=== PATIENT | male | born 1955 | race Caucasian/White ===

== ENCOUNTER 2020-10-04 07:11 | Emergency (ER) | payer OTHER, SELFPAY ==
[2020-10-04 07:12] VITALS: BP 168/113; PULSE 88; RESP 20; TEMP 36.6; O2SAT 97; BMI 29.5
--- NOTE | 2020-10-04 07:23 | ED.VIS.GEN ---
History of Present Illness Chief Complaint: Flank Pain Informant: Patient Narrative: Patient is a 65-year-old male with a past medical history of hypertension, kidney stones who presents to the emergency department for right-sided back pain. He states that it is very severe upon waking this morning. He had a similar episode 5 weeks ago but went away on its own. He tried drinking a bunch of water to flush out his system this morning but was still having significant pain and felt very shaky so he came into the emergency department. Upon arrival he states that his pain was rapidly improving. He feels like he should not have come in at this point now. He denies any abdominal pain associated with this. He denies any chest pain or shortness of breath. No nausea/vomiting. He denies any urinary symptoms. No change in bowel habits. No fevers or chills. No previous abdominal surgeries. Past Medical History - Allergies and Home Meds Allergies/Adverse Reactions: Allergies No Known Allergies Allergy (Verified 10/04/20 07:14) Primary Care Physician: ANAY MCCONNELL [Other] - 2 Days Prior records reviewed: Yes Review of Systems All systems negative except as indicated General: Denies: Chills, Fever, Sweats Eyes: Denies: Visual changes - bilaterally, Diplopia ENT: Denies: Rhinorrhea, Sore throat Cardiovascular: Denies: Chest pain, Palpitations Respiratory: Denies: Dyspnea, Cough, Dyspnea on exertion Gastrointestinal: Denies: Abdominal pain, Nausea, Vomiting, Diarrhea, Melena, Hematochezia Genitourinary: Denies: Dysuria, Hematuria, Frequency Musculoskeletal: Reports: Back pain. Denies: Extremity Pain Skin: Denies: Rash, Wounds Neurological: Denies: Headache, Weakness, Numbness Physical Exam Vital Signs/Narrative: Vital Signs Temp Pulse Resp BP Pulse Ox 10/04/20 07:12 97.8 F 88 20 H 168/113 H 97 Inital Vital Signs reviewed: Yes General: Well nourished, Well developed, No Acute Distress Head: Normocephalic, Atraumatic Eyes: Perrl, EOMI ENT: Moist mucous membranes, No rhinorrhea Neck: Supple, Nontender Cardiovascular: Regular rate, Regular rhythm, No murmurs Respiratory: No distress, CTA bilaterally Abdomen: Soft, Nondistended Back: Normal Inspection Extremities: No edema, - - Up walking around the room. Skin: Normal color, No rash Neurological: Alert, Oriented x3, Normal Strength, Normal Sensation Psychological: Normal affect, Normal Mood Diagnostic/Tx/Re-eval - Medical Decision Making Patient presents to the ED for right-sided flank/low back pain. He is concerned for kidney stone is has had this before in the past. Whenever he arrived he states that his pain is rapidly improving and he is now asymptomatic. Patient does not want to get a CT scan at this time. Will check a urinalysis to evaluate for red blood cells or infection. Patient very adamant on leaving the emergency department as his symptoms completely resolved. He is requesting to be discharged. Patient's urinalysis came back at the same time which showed some occult blood but no red blood cells. No obvious source of infection. Since his pain completely resolved this likely could be a kidney stone but cannot say for sure. I did give him a strainer. He is to follow-up with his PCP. Warning signs and symptoms which to return to the ED including any repeat symptoms are reviewed with him. He understands and is agreeable this plan. All questions were answered. ED Disposition - Plan for ED Patient: Disposition: Home or Assisted Living Diagnosis: Back pain Instructions: ED Flank Pain, Uncertain Cause Referrals: ANAY MCCONNELL [Other] - 2 Days
[2020-10-04 07:52] LABS: Bacteria 0 SEEN /hpf (None Seen); Squamous Epithelial Cells - UA 0 SEEN /hpf (0-5); White Blood Cells 0 SEEN /hpf (0-5)
[2020-10-04 07:53] LABS: Color, Urine Yellow (Yellow); Glucose, Dipstick Normal (Normal); Ketone-Dipstick Negative (Negative); Leukocyte Esterase-Dipstick Negative /ul (Negative); Nitrite-Dipstick Negative (Negative); Occult Blood-Urine 50 /ul (Negative); Protein-Dipstick 15 mg/dl (Negative); Urine Bilirubin Dipstick Negative (Negative); Urine Clarity Sl. Cloudy (Clear); Urine Urobilinogen Normal (Normal)
[2020-10-04 07:59] LABS: Mucous, Urine 1+ /hpf (<or=2+); Red Blood Cells-Urine 0-5 SEEN /hpf (0-5)
== END 2020-10-04 08:06 | disposition home or self-care (01) ==
PROVIDERS: Emergency Provider Emergency Medicine
DX: M54.9 Dorsalgia, unspecified (principal); I10 Essential (primary) hypertension; Z87.442 Personal history of urinary calculi
CPT/HCPCS: 81001; 99282

== ENCOUNTER 2020-12-03 17:10 | Observation (INO) | payer OTHER, SELFPAY ==
[2020-12-03 17:11] VITALS: BP 164/114; PULSE 87; RESP 20; TEMP 36.1; O2SAT 96; BMI 27.8
--- NOTE | 2020-12-03 17:21 | CT_ITS ---
STUDY: CT ABDOMEN AND PELVIS WITHOUT CONTRAST REASON FOR EXAM: Male, 65 years old. RT FLANK PAIN X 6 HRS, HX-KS, SURG-APPY RADIATION DOSAGE (If Supplied By Facility): CTDIvol = ( 11.17 ) mGy, DLP = ( 574.89 ) mGycm TECHNIQUE: Transaxial images were obtained from the dome of the diaphragm to the symphysis pubis without oral contrast, and without intravenous contrast. Sagittal and coronal images were reconstructed. Individualized dose optimization techniques were used for this CT. COMPARISON: None. FINDINGS: The visualized lung bases are unremarkable. The visualized portions of the heart are within normal limits. Normal liver with several small well-defined low-attenuation structures measuring as much as 2.1 cm suggestive of cysts. Normal gallbladder and extrahepatic biliary system. Normal spleen. Normal pancreas. Normal bilateral adrenal glands. Abnormal right kidney showing perinephric stranding and mild/moderate hydronephrosis and hydroureter down to a 6 mm stone at the orifice of the right UVJ. See coronal image 72, and axial image 154. Left kidney has small simple cysts and is otherwise normal. Evaluation of the GI tract is limited by absence of oral contrast. Cannot exclude stomach wall thickening. No dilated loops of bowel or evidence for obstruction. Cannot exclude segmental thickening of the yanez of the small or large bowel. Cannot exclude enteritis or colitis. Moderate diffuse fecal retention. Diverticulosis without definite diverticulitis. Normal abdominal aorta. Normal inferior vena cava. Normal retroperitoneum. Normal urinary bladder. Normal abdominal wall. There are diffuse degenerative changes of the visualized lumbar spine. CT/Abdomen/Pelvis without Cont IMPRESSION: Obstruction of the right kidney collecting system and ureter from a 6 mm right UVJ stone. Electronically Signed: Roberto Martinez MD at 18:09 EST , Service support ,
--- NOTE | 2020-12-03 17:25 | ED.VIS.GEN ---
History of Present Illness Chief Complaint: Flank Pain Informant: Patient Onset: Hours Context: Gradual Onset Timing: Waxes and wanes Current Severity: Moderate Maximum Severity: Moderate Narrative: Patient presents with 6-hour history of right flank pain. He states he had a similar episode approximately 6 weeks ago. He came to the ER at that time but upon arrival his pain improved. He did not want CT imaging at that time it was presumed that he had had a kidney stone. Patient states he had had no problems until today when pain recurred. He points to the right lower back and down to the right groin. He states he has gone to the bathroom a few times but only gotten trickles of urine out. He has had some mild nausea but no vomiting. No fever or chills. - Past Medical History (1) Hypertension Status: Chronic Past Medical History - Allergies and Home Meds Allergies/Adverse Reactions: Allergies No Known Allergies Allergy (Verified 12/03/20 17:10) Primary Care Physician: [facility] Doctor,Out of [NON-STAFF] - Prior records reviewed: Yes Smoking Status: Never smoker Review of Systems General: Denies: Chills, Fever Eyes: Denies: Visual changes - bilaterally ENT: Denies: Bilateral ear pain Cardiovascular: Denies: Chest pain Respiratory: Denies: Dyspnea, Cough Gastrointestinal: Reports: Abdominal pain, Nausea. Denies: Vomiting, Diarrhea Genitourinary: Denies: Dysuria, Hematuria Musculoskeletal: Denies: Swelling, Extremity Pain Skin: Denies: Rash Neurological: Denies: Headache Hematologic: Denies: Easy bruising, Easy bleeding Allergy: Denies: Uticaria Physical Exam Vital Signs/Narrative: Vital Signs Temp Pulse Resp BP Pulse Ox 12/03/20 17:11 96.9 F L 87 20 H 164/114 H 96 Inital Vital Signs reviewed: Yes General: Well nourished, Well developed Head: Normocephalic ENT: Moist mucous membranes Neck: Supple Cardiovascular: Regular rate, Regular rhythm Respiratory: No distress, CTA bilaterally Abdomen: Soft, Nontender Back: Negative for: CVA tenderness Extremities: Nontender Skin: Normal color, No rash Neurological: Alert, Oriented x3, Normal Strength, Normal Sensation Psychological: Normal affect Diagnostic/Tx/Re-eval Impressions Abdomen/Pelvis CT 12/03/20 17:21 IMPRESSION: Obstruction of the right kidney collecting system and ureter from a 6 mm right UVJ stone. Electronically Signed: Roberto Martinez MD at 18:09 EST , Service support , 12/03/20 17:21 Abdomen/Pelvis without Cont [CT] Stat Laboratory Results 12/03/20 12/03/20 12/03/20 17:20 17:20 18:16 WBC 8.2 RBC 4.64 Hgb 14.4 Hct 42.8 MCV 92.2 MCH 31.0 MCHC 33.6 RDW Std Deviation 41.1 RDW Coeff of Michael 12.1 Plt Count 265 MPV 9.3 Immature Gran % (Auto) 0.400 Neut % (Auto) 57.4 Lymph % (Auto) 30.1 [place] % (Auto) 10.4 H Eos % (Auto) 1.2 Baso % (Auto) 0.5 Absolute Neuts (auto) 4.7 Absolute Lymphs (auto) 2.48 Nucleated RBC % 0 Sodium 138 Potassium 4.5 Chloride 104 Carbon Dioxide 30.0 Anion Gap 4 L BUN 18 Creatinine 1.34 H Estim Creat Clear Calc 55.69 Est GFR (MDRD) Af Amer 69 Est GFR (MDRD) Non-Af 57 L BUN/Creatinine Ratio 13.4 Glucose 103 Calcium 8.9 Urine Color Yellow Urine Clarity Clear Urine pH 6.0 Ur Specific [place] 1.020 Urine Protein Negative Urine Glucose (UA) Normal Urine Ketones Negative Urine Occult Blood Negative Urine Nitrite Negative Urine Bilirubin Negative Urine Urobilinogen Normal Ur Leukocyte Esterase Negative Urine RBC 0-5 SEEN Urine WBC 0-5 SEEN Ur Squamous Epith Cells 0 SEEN Urine Bacteria 0 SEEN Urine Mucus 0 SEEN - Medical Decision Making Patient was initially given morphine and Zofran along with IV fluids. He states he had taken ibuprofen earlier today. On repeat evaluation he still had continued pain and was given a small dose of Toradol along with a dose of Dilaudid. He is also given p.o. Flomax. CT scan does reveal a 6 mm stone at the UVJ with right-sided hydro-. On repeat evaluation patient is still quite uncomfortable and cannot lie with any pressure on his back. With difficulty controlling his pain I do feel he should be observed overnight for pain control and then further intervention if needed. I will speak with urology. ED Disposition - Plan for ED Patient: Disposition: Acute Care Hospital [facility] Diagnosis: Kidney stone Referrals: [facility] Doctor,Out of [NON-STAFF] -
[2020-12-03] MEDS: 0.9% Normal Saline 1,000 ML 250 ML IV (17:29)
[2020-12-03] MEDS: Morphine 4 MG/ML Syringe IV (17:30)
[2020-12-03] MEDS: Ondansetron 4 MG/2 ML Vial IV (17:30)
[2020-12-03 17:32] LABS: Absolute Lymphocyte Count 2.48 X10^3/uL (0.83-4.51); Absolute Neutrophil Count 4.7 X10^3/uL (2.0-7.7); Basophil# 0.04 X10^3/uL; Basophil% 0.5 % (0-1); Eosinophils% 1.2 % (0-5); Hematocrit 42.8 % (40-54); Hemoglobin 14.4 g/dL (13.0-16.5); Lymphocyte # 2.48 X10^3/ul (4.0); Lymphocyte % 30.1 % (19-41); Mean Corp Hgb Conc 33.6 g/dL (32-36); Mean Corpuscular Volume 92.2 fL (80-94); Mean Platelet Vol. 9.3 fl (6.2-12.0); Monocyte# 0.86 X10^3/uL; Monocyte% 10.4 % (0-10); NRBC Flagged by Analyzer 0 % (0-5); Neutrophil # 4.73 X10^3/uL (2.7-7.7); Neutrophil % 57.4 % (47-70); Platelet Count 265 K/mm3 (150-450); RBC Distribution Width CV 12.1 % (11.6-14.6); RBC Distribution Width SD 41.1 fl (35.1-43.9); Red Blood Count 4.64 M/mm3 (4.6-6.2); White Blood Count 8.2 K/mm3 (4.4-11.0)
[2020-12-03 17:46] LABS: Anion Gap 4 (5-15); BUN 18 mg/dL (7-18); BUN/Creat Ratio 13.4 RATIO (10-20); Calcium,Total 8.9 mg/dL (8.5-10.1); Chloride 104 mmol/L (98-107); Creatinine, Serum 1.34 mg/dL (0.70-1.30); EST Glomerular Filtration Rate 57 mL/min (>60); Est Glom Filt Rate - Afr Amer 69 mL/min (>60); Estimated Creatinine Clearance 55.69 ml/min; Glucose 103 mg/dL (74-106); Potassium 4.5 mmol/L (3.5-5.1); Sodium Level 138 mmol/L (136-145)
[2020-12-03] MEDS: HYDROmorphone 0.5 MG/0.5 ML SYRINGE IV ×3 (18:20→22:21)
[2020-12-03] MEDS: Ketorolac 15 MG/ML Vial IV (18:21)
[2020-12-03 18:23] LABS: Bacteria 0 SEEN /hpf (None Seen); Mucous, Urine 0 SEEN /hpf (<or=2+); Squamous Epithelial Cells - UA 0 SEEN /hpf (0-5)
[2020-12-03 18:24] LABS: Color, Urine Yellow (Yellow); Glucose, Dipstick Normal (Normal); Ketone-Dipstick Negative (Negative); Leukocyte Esterase-Dipstick Negative /ul (Negative); Nitrite-Dipstick Negative (Negative); Occult Blood-Urine Negative /ul (Negative); Protein-Dipstick Negative (Negative); Urine Bilirubin Dipstick Negative (Negative); Urine Clarity Clear (Clear); Urine Urobilinogen Normal (Normal)
[2020-12-03 18:32] LABS: Red Blood Cells-Urine 0-5 SEEN /hpf (0-5); White Blood Cells 0-5 SEEN /hpf (0-5)
[2020-12-03] MEDS: Tamsulosin HCl 0.4 MG Capsule PO (18:38)
[2020-12-03 18:41] VITALS: BP 139/93; PULSE 86; RESP 16
[2020-12-03 20:11] VITALS: BP 142/97; PULSE 84; RESP 16; TEMP 36.4
--- NOTE | 2020-12-03 21:18 | PCM.HP.STD ---
Problem List (1) Kidney stone Status: Acute History of Present Illness Date of Admission: 12/03/20 Chief Complaint: right UVJ stone The patient is a 65 year old Male with a 6mm UVJ stone very likely will pass, admit for pain control Past Medical History Past Medical History (Chronic Problems): Chronic Problems Hypertension (Chronic) Allergies No Known Allergies Allergy (Verified 12/03/20 17:10) Home Medications: Ambulatory Orders Medication Instructions Recorded Lisinopril [Zestril] 10 mg PO DAILY 12/03/20 Surgical History: no surgical history Smoking Status: Never smoker Review of Systems Constitutional: Denies: Chills, Fever, Weight Change HEENT: Denies: Head Aches, Sinus Congestion, Sinus Drainage Cardiovascular: Denies: Chest Pain, Palpitations Respiratory: Denies: Cough, Shortness of breath at rest, Sputum production Gastrointestinal: Denies: Abdominal Pain, Nausea, Vomiting Genitourinary: Denies: Dysuria Musculoskeletal: Denies: Joint Pain, Joint Tenderness Skin: Denies: Rash, Wounds Neurological: Denies: Numbness, Tingling, Focal weakness Psychiatric: Denies: Anxiety, Depression, Homicidal Ideations, Suicidal Ideations Hematologic/ Lymphatic: Denies: Easy Bruising, Easy Bleeding VTE Information - Inpt Only VTE Present on Admission: No Patient Problems: Active and Suspected Problems Kidney stone (Acute) - Physical Exam Vitals/I&O's: Vital Signs Temp Pulse Resp BP Pulse Ox 97.5 F L 84 16 142/97 H 96 12/03/20 20:11 12/03/20 20:11 12/03/20 20:11 12/03/20 20:11 12/03/20 17:11 Oxygen Delivery Method Room Air Weight: 85.729 kg Body Mass Index (BMI) 27.8 General: Alert, Oriented x3, Cooperative HEENT: Atraumatic, PERRLA, EOMI, Normocephalic Neck: Supple, No JVD, Negative Carotid Bruits Lungs: Clear to auscultation, Normal air movement Cardiovascular: Regular rate, No murmurs Abdomen: Bowel Sounds Present, Soft, Non Tender Extremities: No edema, Capillary Refill Less than 3 Seconds Skin: No rashes, No breakdown Musculoskeletal: No Tenderness to Palpation of Joints or Extremities Neurological: Cranial nerves II-XII grossly intact Psych/Mental Status: Normal Affect, Appropriate Laboratory Results 12/03/20 17:20: WBC 8.2, RBC 4.64, Hgb 14.4, Hct 42.8, MCV 92.2, MCH 31.0, MCHC 33.6, RDW Std Deviation 41.1, RDW Coeff of Michael 12.1, Plt Count 265, MPV 9.3, Immature Gran % (Auto) 0.400, Neut % (Auto) 57.4, Lymph % (Auto) 30.1, [place] % (Auto) 10.4 H, Eos % (Auto) 1.2, Baso % (Auto) 0.5, Absolute Neuts (auto) 4.7, Absolute Lymphs (auto) 2.48, Nucleated RBC % 0 12/03/20 17:20: Sodium 138, Potassium 4.5, Chloride 104, Carbon Dioxide 30.0, Anion Gap 4 L, BUN 18, Creatinine 1.34 H, Estim Creat Clear Calc 55.69, Est GFR (MDRD) Af Amer 69, Est GFR (MDRD) Non-Af 57 L, BUN/Creatinine Ratio 13.4, Glucose 103, Calcium 8.9 12/03/20 18:16: Urine Color Yellow, Urine Clarity Clear, Urine pH 6.0, Ur Specific [place] 1.020, Urine Protein Negative, Urine Glucose (UA) Normal, Urine Ketones Negative, Urine Occult Blood Negative, Urine Nitrite Negative, Urine Bilirubin Negative, Urine Urobilinogen Normal, Ur Leukocyte Esterase Negative, Urine RBC 0-5 SEEN, Urine WBC 0-5 SEEN, Ur Squamous Epith Cells 0 SEEN, Urine Bacteria 0 SEEN, Urine Mucus 0 SEEN Current Medications Sodium Chloride () 1,000 mls @ 250 mls/hr IV .Q4H [facility] Last Admin: 12/03/20 17:29 Dose: 250 mls/hr Documented by: Assessment/Plan All Active Problems Kidney stone (Acute) admit hydrate pain control flomax strain all urine no plan for OR since stone probably will pass.
[2020-12-03 21:26] VITALS: BMI 29.4
[2020-12-03 21:53] VITALS: BP 132/85; PULSE 81; RESP 16; TEMP 36.6; O2SAT 97
[2020-12-03] MEDS: 0.9% Normal Saline 1,000 ML 150 ML IV (22:20)
[2020-12-03] MEDS: 0.9% Saline Lock 10 ML Syringe IV (22:20)
[2020-12-04] VITALS (9 sets, daily range): BP systolic 115–153; BP diastolic 77–90; PULSE 69–85; RESP 16–18; TEMP 36.2–36.7; O2SAT 92–100; BMI 29.4
[2020-12-04] MEDS: HYDROmorphone 0.5 MG/0.5 ML SYRINGE IV ×6 (00:24→11:49)
[2020-12-04] MEDS: Ketorolac 15 MG/ML Vial IV ×2 (01:33→08:45)
[2020-12-04] MEDS: 0.9% Normal Saline 1,000 ML 150 ML IV ×2 (04:47→10:42)
[2020-12-04] MEDS: Lisinopril 10 MG Tablet PO (07:32)
--- NOTE | 2020-12-04 11:06 | PCM.PROGNOTE ---
Patient Problems: Active and Suspected Problems Kidney stone (Acute) Subjective: admitted fir kidney stone, still in severe pain as reported by nursing staff has not passed stone - Physical Exam Vitals/I&O's: Vital Signs Temp Pulse Resp BP Pulse Ox 97.8 F 70 16 137/88 H 97 12/04/20 08:01 12/04/20 08:01 12/04/20 08:01 12/04/20 08:01 12/04/20 08:01 Oxygen Delivery Method Room Air Weight: 90.4 kg Body Mass Index (BMI) 29.4 Intake and Output for Last 24 Hours 12/02/20 12/03/20 12/04/20 23:59 23:59 23:59 Intake Total 1000 / 1000 2555.0 / 2555.0 Output Total 530 / 530 Balance 1000 / 1000 2025.0 / 2025.0 General: Alert, Oriented x3, Cooperative HEENT: Atraumatic, PERRLA, EOMI, Normocephalic Neck: Supple, No JVD, Negative Carotid Bruits Lungs: Clear to auscultation, Normal air movement Cardiovascular: Regular rate, No murmurs Abdomen: Bowel Sounds Present, Soft, Non Tender Extremities: No edema, Capillary Refill Less than 3 Seconds Skin: No rashes, No breakdown Musculoskeletal: No Tenderness to Palpation of Joints or Extremities Neurological: Cranial nerves II-XII grossly intact Psych/Mental Status: Normal Affect, Appropriate Laboratory Results 12/03/20 17:20: WBC 8.2, RBC 4.64, Hgb 14.4, Hct 42.8, MCV 92.2, MCH 31.0, MCHC 33.6, RDW Std Deviation 41.1, RDW Coeff of Michael 12.1, Plt Count 265, MPV 9.3, Immature Gran % (Auto) 0.400, Neut % (Auto) 57.4, Lymph % (Auto) 30.1, [place] % (Auto) 10.4 H, Eos % (Auto) 1.2, Baso % (Auto) 0.5, Absolute Neuts (auto) 4.7, Absolute Lymphs (auto) 2.48, Nucleated RBC % 0 12/03/20 17:20: Sodium 138, Potassium 4.5, Chloride 104, Carbon Dioxide 30.0, Anion Gap 4 L, BUN 18, Creatinine 1.34 H, Estim Creat Clear Calc 55.69, Est GFR (MDRD) Af Amer 69, Est GFR (MDRD) Non-Af 57 L, BUN/Creatinine Ratio 13.4, Glucose 103, Calcium 8.9 12/03/20 18:16: Urine Color Yellow, Urine Clarity Clear, Urine pH 6.0, Ur Specific [place] 1.020, Urine Protein Negative, Urine Glucose (UA) Normal, Urine Ketones Negative, Urine Occult Blood Negative, Urine Nitrite Negative, Urine Bilirubin Negative, Urine Urobilinogen Normal, Ur Leukocyte Esterase Negative, Urine RBC 0-5 SEEN, Urine WBC 0-5 SEEN, Ur Squamous Epith Cells 0 SEEN, Urine Bacteria 0 SEEN, Urine Mucus 0 SEEN Current Medications Acetaminophen (Acetaminophen 325 Mg Tablet) 325 - 650 mg PO Q4H PRN PRN PRN Reason: pain score 1-10/fever/headache Hydrocodone Bitart/Acetaminophen (Hydrocodone Bitartrate/Apap 5/325 Tablet) 1 - 2 tablet PO Q6H PRN PRN PRN Reason: Pain Score 1-5 Hydromorphone HCl (Hydromorphone 0.5 Mg/0.5 Ml Syringe) 0.5 mg IV Q2H PRN PRN PRN Reason: Pain Score 6-10 Last Admin: 12/04/20 09:53 Dose: 0.5 mg Documented by: Sodium Chloride () 1,000 mls @ 150 mls/hr IV .Q6H40M [facility] Last Admin: 12/04/20 10:42 Dose: 150 mls/hr Documented by: Ketorolac Tromethamine (Ketorolac 15 Mg/Ml Vial) 15 mg IV Q6H PRN PRN PRN Reason: PAIN 1-10 Stop: 12/05/20 21:21 Last Admin: 12/04/20 08:45 Dose: 15 mg Documented by: Lisinopril (Lisinopril 10 Mg Tablet) 10 mg PO DAILY [facility] Last Admin: 12/04/20 07:32 Dose: 10 mg Documented by: Metoclopramide HCl (Metoclopramide 10 Mg/2 Ml Vial) 10 mg IV Q8H PRN PRN PRN Reason: Nausea/vomiting Ondansetron HCl (Ondansetron 4 Mg/2 Ml Vial) 4 mg IV Q8H PRN PRN Reason: Nausea Sodium Chloride (0.9% Saline Lock 10 Ml Syringe) 10 - 40 ml IV UD PRN PRN Reason: SALINE FLUSH Last Admin: 12/03/20 22:20 Dose: 10 ml Documented by: Medical Necessity - Tobacco Use Smoking Status: Never smoker Assessment/Plan All Active Problems Kidney stone (Acute) plan for intervention to surgery tiday
--- NOTE | 2020-12-04 11:13 | EKG12_ITS ---
Test Reason : PRE-OP Blood Pressure : / mmHG Vent. Rate : 075 BPM Atrial Rate : 075 BPM P-R Int : 144 ms QRS Dur : 098 ms QT Int : 402 ms P-R-T Axes : 004 -08 016 degrees QTc Int : 448 ms Normal sinus rhythm Normal ECG No previous ECGs available Confirmed by REA VARMA, MIGUEL ÁNGEL ([id number]), film or videotape editor DANIEL JACOBS ([id number]) on 12/05/2020 10:50:52 AM Referred By: XUAN Confirmed By:MIGUEL ÁNGEL LUCIA MD
[2020-12-04] MEDS: Lubricating Jelly 60 GM Tube 30 GM TOPICAL (13:06)
--- NOTE | 2020-12-04 13:06 | NURSING ---
pt to surgery
--- NOTE | 2020-12-04 13:21 | DCINST_ITS ---
Discharge Diet: Light diet - advance as tolerated Discharge Activity: Return to Normal Activity Suture Line Care: Avoid Pulling/Pushing, Avoid Pinching/Bending Additional Instructions: stent place to unblock kidney still have stone, will have my office call you to set up Surgery later this week to laser stone. Allergies/Adverse Reactions: Allergies mushroom Adverse Reaction (Verified 12/03/20 21:38) Diarrhea Medications to take at Discharge Lisinopril [Zestril] 10 mg PO DAILY 12/03/20 Ciprofloxacin [Cipro] 500 mg PO BID #6 tab 12/04/20 Hydrocodone Bitart/Apap 5-325 [[place] 5MG-325MG] 1 tab PO Q4H PRN PRN 7 Days #14 tab 12/04/20 The following prescriptions were given: Ciprofloxacin [Cipro] 500 mg PO BID #6 tab Prescription Printed Hydrocodone Bitart/Apap 5-325 [[place] 5MG-325MG] 1 tab PO Q4H PRN PRN 7 Days #14 tab PRN Reason: Pain Prescription Printed Primary Care Physician: [facility] Doctor,Out of [NON-STAFF] - Test Results: Test results from this visit will be discussed in further detail at your follow- up appointment, if applicable. Please Follow Up With: Mohamud Bustamante MD - [phone] When: please call to make an appointment.
--- NOTE | 2020-12-04 13:23 | OP.PCM_ITS ---
Problem List (1) Kidney stone Status: Acute Report of Operation Date of Procedure: 12/04/20 Pre-Operative Diagnosis: Right obstructive ureteral calculi Post-Operative Diagnosis: Same Surgery/Procedure Performed:: Cystoscopy, right retrograde pyelogram and right stent placement Description of Surgical Findings:: Patient was taken back to the operating room after induction of general anes thesia, the patient was placed in dorsolithotomy position. The urethra and genitals were prepped and draped in usual sterile fashion. Using a 21 [place] rigid cystourethroscope the entire length of the urethra was normal then went into the bladder. Identified the trigone the left and right ureteral orifice. I then cannulated the right orifice and advanced a wire up into the kidney. I then backloaded a 5 [place] open ended catheter over the wire and injected contrast to delineate the anatomy. He had an obstructive stone in the distal right ureter. After the retrograde was performed I then used fluoroscopic images and guidance to advanced a wire up into the kidney and over the 0.038 glidewire I advanced a 6 [place] by 26 cm double pigtail stent. I then pulled the 0.038 Glidewire off and the stent coiled in the kidney bladder good position. The bladder was then drained. We confirmed the position of the stent by fluoroscopy. Patient anesthetic was reversed and was taken back to the PACU in good condition. Type of Anesthesia:: General Drains: stent - Admit VTE Documentation VTE Present on Admission: No
--- NOTE | 2020-12-04 13:24 | DS.PCM_ITS ---
Discharge Date and Diagnosis - Problem List Patient Problems: Active and Suspected Problems Kidney stone (Acute) Date of Admission: 12/03/20 Date of Discharge: 12/04/20 - Primary Discharge Diagnosis Acute Problems: Active Problems Kidney stone (Acute) - Secondary Discharge Diagnosis Chronic Problems: Chronic Problems Hypertension (Chronic) Hospital Course and Treatment Imaging Results: 12/04/20 12:35 O.R. Fluoro for C-Arm [RAD] Urgent Operations: - - cysto right stent placement Procedures: None Summary of Care Provided: The patient is a 65 year old male admitted with right obstructive stone, s/p right stent placement home today with stent, I will have my office call him with instructions. Patient Problems: Active and Suspected Problems Kidney stone (Acute) - Physical Exam Vitals/I&O's: Vital Signs Temp Pulse Resp BP Pulse Ox 97.4 F L 75 16 153/87 H 96 12/04/20 11:56 12/04/20 11:56 12/04/20 11:56 12/04/20 11:56 12/04/20 11:56 Oxygen Delivery Method Room Air Weight: 90.4 kg Body Mass Index (BMI) 29.4 Intake and Output for Last 24 Hours 12/02/20 12/03/20 12/04/20 23:59 23:59 23:59 Intake Total 1000 / 1000 2555.0 / 2555.0 Output Total 1130 / 1130 Balance 1000 / 1000 1425.0 / 1425.0 General: Alert, Oriented x3, Cooperative HEENT: Atraumatic, PERRLA, EOMI, Normocephalic Neck: Supple, No JVD, Negative Carotid Bruits Lungs: Clear to auscultation, Normal air movement Cardiovascular: Regular rate, No murmurs Abdomen: Bowel Sounds Present, Soft, Non Tender Extremities: No edema, Capillary Refill Less than 3 Seconds Skin: No rashes, No breakdown Musculoskeletal: No Tenderness to Palpation of Joints or Extremities Neurological: Cranial nerves II-XII grossly intact Psych/Mental Status: Normal Affect, Appropriate Microbiology Past 72 Hours 12/04/20 Unknown Mucosa - Nose SARS-CoV-2 Antigen (Rapid) - Final Laboratory Results 12/03/20 17:20: WBC 8.2, RBC 4.64, Hgb 14.4, Hct 42.8, MCV 92.2, MCH 31.0, MCHC 33.6, RDW Std Deviation 41.1, RDW Coeff of Michael 12.1, Plt Count 265, MPV 9.3, Immature Gran % (Auto) 0.400, Neut % (Auto) 57.4, Lymph % (Auto) 30.1, [place] % (Auto) 10.4 H, Eos % (Auto) 1.2, Baso % (Auto) 0.5, Absolute Neuts (auto) 4.7, Absolute Lymphs (auto) 2.48, Nucleated RBC % 0 12/03/20 17:20: Sodium 138, Potassium 4.5, Chloride 104, Carbon Dioxide 30.0, Anion Gap 4 L, BUN 18, Creatinine 1.34 H, Estim Creat Clear Calc 55.69, Est GFR (MDRD) Af Amer 69, Est GFR (MDRD) Non-Af 57 L, BUN/Creatinine Ratio 13.4, Glucose 103, Calcium 8.9 12/03/20 18:16: Urine Color Yellow, Urine Clarity Clear, Urine pH 6.0, Ur Specific [place] 1.020, Urine Protein Negative, Urine Glucose (UA) Normal, Urine Ketones Negative, Urine Occult Blood Negative, Urine Nitrite Negative, Urine Bilirubin Negative, Urine Urobilinogen Normal, Ur Leukocyte Esterase Negative, Urine RBC 0-5 SEEN, Urine WBC 0-5 SEEN, Ur Squamous Epith Cells 0 SEEN, Urine Bacteria 0 SEEN, Urine Mucus 0 SEEN Current Medications Acetaminophen (Acetaminophen 325 Mg Tablet) 325 - 650 mg PO Q4H PRN PRN PRN Reason: pain score 1-10/fever/headache Hydrocodone Bitart/Acetaminophen (Hydrocodone Bitartrate/Apap 5/325 Tablet) 1 - 2 tablet PO Q6H PRN PRN PRN Reason: Pain Score 1-5 Hydromorphone HCl (Hydromorphone 0.5 Mg/0.5 Ml Syringe) 0.5 mg IV Q2H PRN PRN PRN Reason: Pain Score 6-10 Last Admin: 12/04/20 11:49 Dose: 0.5 mg Documented by: Sodium Chloride () 1,000 mls @ 150 mls/hr IV .Q6H40M MOHINI Last Admin: 12/04/20 10:42 Dose: 150 mls/hr Documented by: Ketorolac Tromethamine (Ketorolac 15 Mg/Ml Vial) 15 mg IV Q6H PRN PRN PRN Reason: PAIN 1-10 Stop: 12/05/20 21:21 Last Admin: 12/04/20 08:45 Dose: 15 mg Documented by: Lisinopril (Lisinopril 10 Mg Tablet) 10 mg PO DAILY [facility] Last Admin: 12/04/20 07:32 Dose: 10 mg Documented by: Metoclopramide HCl (Metoclopramide 10 Mg/2 Ml Vial) 10 mg IV Q8H PRN PRN PRN Reason: Nausea/vomiting Ondansetron HCl (Ondansetron 4 Mg/2 Ml Vial) 4 mg IV Q8H PRN PRN Reason: Nausea Sodium Chloride (0.9% Saline Lock 10 Ml Syringe) 10 - 40 ml IV UD PRN PRN Reason: SALINE FLUSH Last Admin: 12/03/20 22:20 Dose: 10 ml Documented by: Discharge Diet: Light diet - advance as tolerated Discharge Activity: Return to Normal Activity Suture Line Care: Avoid Pulling/Pushing, Avoid Pinching/Bending Home Medications: Medications to take at Discharge Lisinopril [Zestril] 10 mg PO DAILY 12/03/20 Ciprofloxacin [Cipro] 500 mg PO BID #6 tab 12/04/20 Hydrocodone Bitart/Apap 5-325 [[place] 5MG-325MG] 1 tab PO Q4H PRN PRN 7 Days #14 tab 12/04/20 Following Prescriptions Were Given to Patient: Ciprofloxacin [Cipro] 500 mg PO BID #6 tab Prescription Printed Hydrocodone Bitart/Apap 5-325 [[place] 5MG-325MG] 1 tab PO Q4H PRN PRN 7 Days #14 tab PRN Reason: Pain Prescription Printed Primary Care Physician: [facility] Doctor,Out of [NON-STAFF] - Please Follow Up With: Mohamud Bustamante MD - [phone] When: please call to make an appointment. Additional Instructions: stent place to unblock kidney still have stone, will have my office call you to set up Surgery later this week to laser stone. Medical Necessity - Tobacco Use Smoking Status: Never smoker Meaningful Use Info Meaningful Use Diagnoses (Choose all that apply): None applicable
== END 2020-12-04 17:15 | disposition home or self-care (01) ==
LOC: ED 19:38 → MS3 22:10
PROVIDERS: Admitting Provider Urology; Emergency Provider Emergency Medicine; Visit Provider Urology
PROC: (CPT 52332; principal; 2020-12-04 13:00)
DX: N13.2 Hydronephrosis with renal and ureteral calculous obstruction (principal); I10 Essential (primary) hypertension; Z79.899 Other long term (current) drug therapy
CPT/HCPCS: 52332; 74176; 76000; 80048; 81001; 85025; 87426; 93005; 96361; 96374; 96375; 96376; 99218; 99284; J7030; A4216; C1769; C2617; G0378; J2405

== ENCOUNTER → 2020-12-12 | Outpatient (CLI) | payer OTHER, SELFPAY ==
[2020-12-04 11:51] VITALS: BMI 29.4
--- NOTE | 2020-12-09 13:20 | CALC_PTH ---
PATIENT: GAEL ORTEGA LOC: [facility] U#:[id number] AGE/SX: 65/M ROOM: RE12/12/[address]: Dr. Mohamud Bustamante MD : [id number] BED: DIS: 12/12/2020 SPEC #: [id number] RECD: 12/12/20 15:08 STATUS: SADIE KAMARA #: [id number] LOU: 12/09/20 13:[address]: Mohamud Bustamante DEPT: SURGICAL PATHOLOGY RECD BY: Kayce Anderson ENTERED: 12/13/20 08:34 SP TYPE: Calculi OTHR DR: RUBINA Tissues: CALCULI Procedures: Surgery Specimen Level I HEADER OPERATION: Right ureteroscopy, laser of stone, right ureteral stent PRE-OP DIAGNOSIS: Kidney stone TISSUE SUBMITTED: Fragment of kidney stone (in saline) GROSS DIAGNOSIS A fragment of stone, clinically kidney stone. MIC:gorge 2/23/21 COMMENT If chemical analysis is requested on this specimen, please notify the laboratory. GROSS DESCRIPTION Received is one container labeled with the patient's name and not further designated. The specimen consists of a fragment of light brown stone measuring 0.2 x 0.1 x 0.1 cm. The entire specimen is saved if stone analysis is requested. / MIC:gorge 12/13/20 CPT: 86023
== END | disposition home or self-care (01) ==
LOC: LABSPEC 15:31
PROVIDERS: Visit Provider Urology
DX: N20.0 Calculus of kidney (principal)
CPT/HCPCS: 88300